=== PATIENT | male | born 1980 | race Caucasian/White ===

== ENCOUNTER 2017-06-11 19:28 | Inpatient (IN) | payer BC ==
[2017-06-11] MEDS ORDERED: NS 0.9% 1000 ML* 1,000 ML IV ONE (19:46)
[2017-06-11 20:00] LABS: Hematocrit 45 % (42-52); Hemoglobin 15.1 g/dl (14.0-18.0); Mean Corpuscular HGB Conc 34 g/dl (31-36); Mean Corpuscular Hemoglobin 29 pg (27-31); Mean Corpuscular Volume 88 fL (80-94); Mean Platelet Volume 8 um3 (7.4-10.4); Red Blood Count 5.15 10^6/ul (4.0-5.4); Red Cell Distribution Width 14 % (10.5-15); White Blood Count 9.7 10^3/ul (3.5-10.8)
[2017-06-11 20:13] LABS: ALT 26 U/L (7-52); AST 19 U/L (13-39); Albumin 4.5 g/dL (3.2-5.2); Alkaline Phosphatase 82 U/L (34-104); Anion Gap 9 mmol/L (2-11); BUN/Creatinine Ratio 18.3 (8-20); Blood Urea Nitrogen 21 mg/dL (6-24); CO2 Carbon Dioxide 24 mmol/L (22-32); Calcium 9.3 mg/dL (8.6-10.3); Chloride 104 mmol/L (101-111); EGFR African American 93.1 (>60); EGFR Non-African American 72.4 (>60); Globulin 2.9 g/dL (2-4); Glucose 142 mg/dL (70-100); Potassium 3.9 mmol/L (3.5-5.0); Sodium 137 mmol/L (133-145); Total Protein 7.4 g/dL (6.4-8.9)
[2017-06-11 20:20] LABS: Acetaminophen < 15 mcg/mL; Alcohol < 10 mg/dL (<10); Salicylate < 2.50 mg/dL (<30)
--- NOTE | 2017-06-11 20:48 | ED ---
Maritza Law Thomas, scribed for Brian Sanchez MD on 06/11/17 at 1947 . Substance Abuse/Use - HPI Summary HPI Summary: The pt is a 37 y/o M presenting to the ED s/p taking an unknown amount of Quetiapine 300mg and Fluoxetine HCl 40mg today at approximately 13:00. When asked how much medication he took, he responds I am not sure how much. He reports that he has been depressed lately. The patients aunt is his caregiver. At 18:00, the patients aunt reports that he was flopping against the wall and did a faceplant. When I asked him if he took any pills, he responded maybe. Per aunt, he has not have any recent overdoses or suicide attempts. Also, the aunt reports suicidal ideation via text messages. PMHx: Bipolar disorder. PSHx: none. SHx: former smoker, no alcohol use, no illicit drug use. FHx: Bipolar disorder. - History Of Current Complaint Chief Complaint: EDOverdose Stated Complaint: OVERDOSE Time Seen by Provider: 06/11/17 19:45 Hx Obtained From: Patient, Family/Securities Consultant - aunt in room Ingestion History: Type/Name Of Drug - unknown amount of Quetiapine 300mg and Fluoxetine HCl 40mg today at approximately 13:00 Overdose Characteristics: Oral Aggravating Factor(s): Nothing Alleviating Factor(s): Nothing Associated Signs And Symptoms: Other: - POS: SI - Allergies/Home Medications Allergies/Adverse Reactions: Allergies Allergy/AdvReac Type Severity Reaction Status Date / Time No Known Allergies Allergy Verified 06/11/17 23:05 Home Medications: Home Medications Quetiapine Fumarate [Seroquel Xr] 300 mg PO BEDTIME 06/12/17 [History Confirmed 06/12/17] PMH/Surg Hx/FS Hx/Imm Hx Previously Healthy: No Cardiovascular History: Denies: Hx Myocardial Infarction Psychiatric History: Reports: Hx Bipolar Disorder Denies: Hx Eating Disorder, Hx of Violent Episodes Against Others - Surgical History Surgery Procedure, Year, and Place: None Infectious Disease History: Denies: Traveled Outside the [place] in Last 30 Days - Family History Known Family History: Positive: Other - POS: Bipolar disorder - Social History Alcohol Use: None Substance Use Type: Reports: None Hx Tobacco Use: Yes Smoking Status (MU): Former Smoker Review of Systems Negative: Fever Psychological: Other - POS: SI, suspected overdose All Other Systems Reviewed And Are Negative: Yes Physical Exam Triage Information Reviewed: Yes Vital Signs On Initial Exam: Initial Vitals Temp Pulse Resp BP Pulse Ox 98.3 F 89 16 82/47 98 06/11/17 19:36 06/11/17 19:36 06/11/17 19:36 06/11/17 19:36 06/11/17 19:36 Vital Signs Reviewed: Yes Appearance: Positive: No Pain Distress, Thin Skin: Positive: Warm Head/Face: Positive: Normal Head/Face Inspection Eyes: Positive: DEMETRICE ENT: Positive: Hearing grossly normal Neck: Positive: Supple Respiratory/Lung Sounds: Positive: Breath Sounds Present Cardiovascular: Positive: RRR Abdomen Description: Positive: Nontender, Soft Bowel Sounds: Positive: Present Musculoskeletal: Positive: Strength/ROM Intact Neurological: Positive: Sensory/Motor Intact Psychiatric: Positive: Depressed Diagnostics - Vital Signs Vital Signs Temp Pulse Resp BP Pulse Ox 06/11/17 19:36 98.3 F 89 16 82/47 98 - Laboratory Result Diagrams: 06/11/17 19:50 06/11/17 19:50 Lab Statement: Any lab studies that have been ordered have been reviewed, and results considered in the medical decision making process. - EKG 20:17 Cardiac Rate: NL - 67 BPM EKG Interpretation: NSR. Nml EKG Course/Dx - Course Assessment/Plan: The pt is a 37 y/o M presenting to the ED s/p taking an unknown amount of Quetiapine 300mg and Fluoxetine HCl 40mg today at approximately 13:00. When asked how much medication he took, he responds I am not sure how much. He reports that he has been depressed lately. The patients aunt is his caregiver. At 18:00, the patients aunt reports that he was flopping against the wall and did a faceplant. When I asked him if he took any pills, he responded maybe. Per aunt, he has not have any recent overdoses or suicide attempts. Also, the aunt reports suicidal ideation via text messages. PMHx: Bipolar disorder. PSHx: none. SHx: former smoker, no alcohol use, no illicit drug use. FHx: Bipolar disorder. In the ED course the patient was given IV fluids. Blood work shows Glucose 142. UA shows 1+ protein, 1+ ketones, positive urobilinogen, trace leukocyte esterase, 1+ WBC, present hyaline casts. Urine toxicology was negative. EKG reveals NSR. The patient is pending MHE. He will be signed out to Dr. Maharaj at shift change. - Diagnoses Provider Diagnoses: Suicidal deliberate poisoning - Physician Notifications Instructed by Provider To: Admit As Inpatient Discharge - Discharge Plan Condition: Fair Disposition: [facility] [place] Discharge Disposition Comment: Signed out from Dr. Sanchez to Dr. Maharaj at shift change pending MHE Referrals: Walker Blank, VARIETY LATHE OPERATOR [Primary Care Provider] - The documentation as recorded by the Maritza castro Thomas accurately reflects the service I personally performed and the decisions made by , Brian Sanchez MD.
[2017-06-11 22:39] LABS: Urine Bacteria Absent (Absent); Urine Bilirubin Negative (Negative); Urine Glucose Negative (Negative); Urine Nitrite Negative (Negative)
[2017-06-11 23:05] LABS: Benzodiazepine Urine Screen None Detected (None Detect)
--- NOTE | 2017-06-12 08:14 | CONSULT ---
Consult Consult: Mr. Claros was medically cleared on a previous shift and had a MHE this AM. They offered him a voluntary admission which he accepted. He will be admitted in stable condition with a diagnosis of Depression with SI.
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
[2017-06-12] MEDS ORDERED: QUEtiapine TAB* 100 MG PO SCH (21:00)
[2017-06-13 08:57] VITALS: BP 128/81
[2017-06-13] MEDS ORDERED: FLUoxetine CAP* 20 MG PO SCH (09:00)
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
== END 2017-06-13 15:00 | disposition home or self-care (01) | DRG 753 ==
LOC: ED 19:28 → BSU 06-12 09:44
PROVIDERS: ADMIT Psychiatry & Neurology Psychiatry; ATTEND Psychiatry & Neurology Psychiatry
DX: F31.9 Bipolar disorder, unspecified (principal); F43.21 Adjustment disorder with depressed mood; R41.83 Borderline intellectual functioning; Q86.0 Fetal alcohol syndrome (dysmorphic); T43.222A Poisoning by selective serotonin reuptake inhibitors, intentional self-harm, initial encounter; T43.592A Poisoning by other antipsychotics and neuroleptics, intentional self-harm, initial encounter; Y92.9 Unspecified place or not applicable; X58.XXXA Exposure to other specified factors, initial encounter; Z87.891 Personal history of nicotine dependence; Z81.1 Family history of alcohol abuse and dependence
CPT/HCPCS: 36415; 80053; 80307; 80320; 80329; 81003; 81015; 83605; 85025; 87086; 93005; 99222; 99238; A9270-GY; G0480